=== PATIENT | male | born 1960 | race Caucasian/White ===

== ENCOUNTER 2020-05-06 18:45 | Emergency (ER) | payer OTHER, SELFPAY ==
[2020-05-06 18:50] VITALS: BP 135/90; PULSE 56; RESP 16; TEMP 36.5; O2SAT 98; BMI 22.4
--- NOTE | 2020-05-06 18:53 | XRR_ITS ---
PROCEDURE INFORMATION: Exam: XR Left Shoulder Exam date and time: 05/06/2020 7:15 PM Age: 60 years old Clinical indication: Injury or trauma; Injury history: Fall off horse; Initial encounter; Blunt trauma (contusions or hematomas); Shoulder; Left; Injury date: 05/06/20 TECHNIQUE: Imaging protocol: XR Left shoulder. Views: 2 or more views. COMPARISON: No relevant prior studies available. FINDINGS: Bones/joints: Degenerative change of the spine. Osteopenia. Degenerative arthritis left shoulder. No acute fracture. Soft tissues: Normal. XR/XR shoulder LT min 2V* [id number] IMPRESSION: Mild degenerative changes left shoulder.
--- NOTE | 2020-05-06 18:53 | XRR_ITS ---
PROCEDURE INFORMATION: Exam: XR Right Femur Exam date and time: 05/06/2020 7:15 PM Age: 60 years old Clinical indication: Injury or trauma; Injury history: Fall off horse; Initial encounter; Blunt trauma; Thigh or upper leg; Right; Injury date: 05/06/20; Prior surgery; Surgery type: Bilat hip TECHNIQUE: Imaging protocol: XR Right femur. Views: 2 views. COMPARISON: No relevant prior studies available. FINDINGS: Bones/joints: Total right hip arthroplasty. Irregularity of the greater trochanter with adjacent calcifications most likely nonacute. No dislocation. Soft tissues: Unremarkable. XR/XR femur RT min 2V* [id number] IMPRESSION: Total right hip arthroplasty. No acute osseous abnormality.
--- NOTE | 2020-05-06 19:01 | ED_ITS ---
HPI - Fall General: Chief Complaint: Fall Stated Complaint: FALL OFF THE HORSE Time Seen by Provider: 05/06/20 18:48 Source: patient Mode of arrival: ambulatory Limitations: no limitations History of Present Illness: HPI Narrative: 60-year-old male who states he was riding horse roughly 1 hour ago and fell off the horse. He states he hit his right inner thigh on the horn and has thigh pain. He states he landed on his left shoulder when he fell. He states his pain is sharp in nature and rates it a 5 out of 10 denies any worsening or improving factors. Associated symptoms-after fall: Denies abdominal pain, chest pain, headache(s) or neck pain Review of Systems Const: Denies: fever(s), chills, body aches or change in appetite Eyes: Denies: blurry vision or eye discomfort ENMT: Denies: throat pain or dental pain Card: Denies: chest pain Resp: Denies: dyspnea GI: Denies: abdominal pain, nausea, vomiting or diarrhea : Denies: dysuria Musc: Denies: neck pain or back pain Skin/Breast: Denies: rash Neuro: Denies: headache(s) Psych: Denies: depression [place]/Lymph: Denies: easy bruising All/Imm: Denies: urticaria Physical Exam Const: COMMON NORMALS: no acute distress, patient oriented x3 and healthy appearing HENMT: COMMON NORMALS: normocephalic and atraumatic HEAD & SCALP: normocephalic and atraumatic Eye: COMMON NORMALS: Equal, round and reactive pupils present and EOMs intact bilaterally PUPIL: Yes Equal, round and reactive pupils present Neck/C-Spine: COMMON NORMALS: full ROM and supple Chest: COMMONS NORMALS: normal inspection of the chest and normal palpation of entire chest wall Resp: COMMON NORMALS: normal respiratory effort, No retractions, No use of accessory muscles and clear to auscultation bilaterally AUSCULTATION: clear to auscultation bilaterally Cardio: COMMON NORMALS: regular rate, regular rhythm and No murmurs present (Cardio) RATE: regular rate RHYTHM: regular rhythm GI: COMMON NORMALS: Normal to inspection, nondistended, normoactive bowel sounds present, Soft to palpation, non-tender and no masses PALPATION: Yes Soft to palpation Extremity: COMMON NORMALS: full ROM NARRATIVE EXTREMITY EXAM: Contusion to right inner thigh along with tenderness over left shoulder with no obvious deformity Neuro: COMMON NORMALS: patient oriented x3, moves all extremities and no focal motor deficits Psych: COMMON NORMALS: mental status grossly normal, Normal thought process present and cooperative THOUGHT PROCESS: Normal thought process present Skin: COMMON NORMALS: no rashes or lesions noted and no wounds GENERAL SKIN EXAM: no rashes or lesions noted Course Vital Signs: Vital signs: Vital Signs Temperature 97.7 F 05/06/20 18:50 Pulse Rate 56 L 05/06/20 18:50 Respiratory Rate 16 05/06/20 18:50 Blood Pressure 135/90 05/06/20 18:50 Pulse Oximetry 98 05/06/20 18:50 MDM - Fall MDM Narrative: Medical decision making narrative: 60-year-old male who was bucked off a horse. Patient has a contusion to his shoulder and right inner thigh with no obvious fracture. He had no head injury no other injuries. He is well-appearing here and is stable for discharge. He is to follow-up with PCP in 3 to 5 days return if worsening. He is to ice and will place him on pain meds as well. Imaging Data^: X-ray right femur: Attestation: I personally reviewed and interpreted this imaging study as follows: X-ray left shoulder: Attestation: I personally reviewed and interpreted this imaging study as follows: My impression: No acute abnormality Discharge Plan Discharge Patient Disposition: Home Clinical Impression: Fall Qualifiers: Encounter type: initial encounter Qualified Code(s): W19.XXXA - Unspecified fall, initial encounter Contusion Qualifiers: Encounter type: initial encounter Contusion area: thigh Laterality: right Qualified Code(s): S70.11XA - Contusion of right thigh, initial encounter Condition: Stable Prescriptions: [place] 5-325 mg tablet 1 tab PO Q6H PRN (Reason: pain) Qty: 8 RF: 0 Discharge Orders: Discharge Order (Routine); Ordered 05/06/20 Ordered By: Karrie Mohr Referrals: Edda Jaimes APN [Family Provider] - 1-3 days Discharge Diet: Advance as tolerated Discharge Activity: Resume usual activity Patient Instructions: Contusion in Adults (ED) Coding Level of Care Code ED Kinesiology Internship for [facility] Fwd Exam Comprehensive
[2020-05-06] MEDS: HYDROcodone-acetaminophen 7.5-325 mg Tablet 1 TAB PO (19:10)
[2020-05-06 19:37] VITALS: BP 121/83; PULSE 72; RESP 16; O2SAT 98
== END 2020-05-06 19:38 | disposition home or self-care (01) ==
LOC: ER 19:31
PROVIDERS: Emergency Provider Emergency Medicine
DX: S70.11XA Contusion of right thigh, initial encounter (principal); V80.010A Animal-rider injured by fall from or being thrown from horse in noncollision accident, initial encounter
CPT/HCPCS: 12345; 73030; 73552; 99282; 99283

== ENCOUNTER → 2022-11-18 13:45 | Outpatient (BNVA) | payer MEDICARE, SELFPAY | PROVIDERS: Visit Provider Registered Nurse Neonatal Intensive Care | DX: S62.641A Nondisplaced fracture of proximal phalanx of left index finger, initial encounter for closed fracture (principal); X58.XXXA Exposure to other specified factors, initial encounter | CPT/HCPCS: 73130 ==